=== PATIENT | female | born 1990 | race Caucasian/White ===

== ENCOUNTER 2023-06-16 18:47 | Inpatient (IN) | payer OTHER ==
[2023-06-16] MEDS ORDERED: Nalbuphine HCl 10 MG/ 1ML Amp IVPUSH PRN (19:23)
[2023-06-16] MEDS ORDERED: Calcium Carbonate 500 MG Tab.Chew PO PRN (19:23)
[2023-06-16] MEDS ORDERED: Sodium Chloride 0.9% 10 ML Syringe FLUSH PRN (19:23)
[2023-06-16] MEDS ORDERED: Lidocaine 1% 50 ML MDV INJECT PRN (19:23)
[2023-06-16] MEDS ORDERED: Ondansetron 4 MG/2 ML SDV IVPUSH PRN (19:23)
[2023-06-16] MEDS ORDERED: Acetaminophen 325 MG Tab PO PRN (19:23)
[2023-06-16] MEDS ORDERED: Lactated Ringers 1,000 ML IV SCH (19:30)
[2023-06-16] MEDS ORDERED: Oxytocin/Lactated Ringers 30 UNIT/500 ML BAG IV SCH (19:30)
[2023-06-16 19:49] LABS: BASOPHILS PERCENT AUTO 0.3 % (0.0-1.0); EOSINOPHILS PERCENT AUTO 0.2 % (0.0-6.0); HEMATOCRIT 37.6 % (37.0-47.0); HEMOGLOBIN 13.3 gm/dl (12.0-16.0); IMMATURE GRAN ABSOLUTE AUTO 0.12 K/mm3 (0.00-0.05); IMMATURE GRAN PERCENT AUTO 0.9 % (0.0-0.4); LYMPHOCYTES ABSOLUTE AUTO 1.7 K/mm3 (1.0-4.8); LYMPHOCYTES PERCENT AUTO 12.4 % (24.0-44.0); MEAN CORPUSCULAR HEMOGLOBIN 32.4 pg (28.0-32.0); MEAN CORPUSCULAR HGB CONC 35.4 g/dl (32.0-36.0); MEAN CORPUSCULAR VOLUME 91.7 fl (83.0-99.0); MONOCYTES ABSOLUTE AUTO 0.9 K/mm3 (0.0-0.8); MONOCYTES PERCENT AUTO 6.3 % (0.0-8.0); NEUTROPHILS ABSOLUTE AUTO 10.8 K/mm3 (1.8-7.7); NEUTROPHILS PERCENT AUTO 79.9 % (41.0-71.0); PLATELET COUNT,PLT 189 K/mm3 (150-400); WHITE BLOOD CELL COUNT,WBC 13.49 K/mm3 (3.9-11.3)
[2023-06-17] MEDS ORDERED: Nalbuphine 10 MG/ML Syringe IVPUSH PRN (07:02)
[2023-06-17] MEDS: Oxytocin 10 Units/1 ML SDV IM ONE (07:19)
[2023-06-17] MEDS ORDERED: Ibuprofen 600 MG Tab PO PRN (08:23)
[2023-06-17] MEDS ORDERED: Acetaminophen 325 MG Tab PO PRN (08:23)
[2023-06-17] MEDS ORDERED: Docusate Sodium 100 MG Cap PO PRN (08:23)
[2023-06-17] MEDS: Witch Hazel Medicated Pads 40/Jar TOP PRN (08:54)
[2023-06-17] MEDS: Benzocaine/Menthol 20%-0.5% Spray 78 GM Cannister TOP PRN (08:54)
[2023-06-18] MEDS: Oxytocin 10 Units/1 ML SDV ONE (01:09)
== END 2023-06-18 14:50 | disposition home or self-care (01) | DRG 807 ==
LOC: JD.OBCHECK 18:47 → JD.OB 19:24 → OBSVTOIN 06-17 06:59 → JD.MS 06-17 07:00
PROVIDERS: ADMIT Obstetrics & Gynecology; ATTEND Obstetrics & Gynecology
PROC: 10E0XZZ Delivery of Products of Conception, External Approach (ICD-10-PCS; principal; 2023-06-17)
DX: O48.0 Post-term pregnancy (principal); Z37.0 Single live birth; Z3A.40 40 weeks gestation of pregnancy; O70.0 First degree perineal laceration during delivery
CPT/HCPCS: 36415; 59025; 59409; 85025; 86592; 86850; 86900; 86901; J2590